=== PATIENT | female | born 1955 | race Caucasian/White ===

== ENCOUNTER → 2016-09-20 | Day surgery (SDC) | payer OTHER ==
[~2016-09-20] MED LIST: ERGO50000 PO; FLUT50SP EACH NARE; LACTATED RINGER'S 1000 ML INJ 1,000 ML ONE; PRAV20 PO; PROPOFOL 200 MG/20 ML AMP IV ONE; SYMB160A INH
--- NOTE | 2016-09-20 10:16 | GIPROC ---
[facility] [address] [facility], [id number] EGD WITH DILATION PROCEDURE REPORT EXAM DATE: 09/20/2016 PATIENT NAME: Zoe Delcid MR#: [id number] BIRTHDATE: 1955 ATTENDING: Leona Waddell MD ORDER #: [id number] FORM SETTER HELPER: Ronit Ramirez GRAPHICS SOFTWARE ENGINEER and Dalia Fay RN STATUS: outpatient INDICATIONS: The patient is a 61 yr old female here for an EGD with dilation due to reflux, dysphagia PROCEDURE PERFORMED: EGD w/ biopsy EGD w/ dilation of esophagus via guidewire MEDICATIONS: None and Per Anesthesia. TOPICAL ANESTHETIC: none CONSENT: The patient understands the risks and benefits of the procedure and understands that these risks include, but are not limited to: sedation, allergic reaction, infection, perforation and/or bleeding. Alternative means of evaluation and treatment include, among others: physical exam, x-rays, and/or surgical intervention. The patient elects to proceed with this endoscopic procedure. medical equipment was checked for proper function. Hand hygiene and appropriate measures for infection prevention was taken. After the risks, benefits and alternatives of the procedure were thoroughly explained, Informed consent was verified, confirmed and timeout was successfully executed by the treatment team. The patient was anesthetized with topical anesthesia and the EC-[id number] ([id number]) and EC-[id number] ([id number]) endoscope was introduced through the mouth and advanced to the second portion of the duodenum. The instrument was slowly withdrawn as the mucosa was fully examined. Gastritis antrum-biopsy esophagitis distal esophagus. Dilation was performed at gastroesophageal junction. DILATOR: SIZE(S): RESISTANCE: HEME: APPEARANCE: Dilator: Savary over guidewire Size(s): 16 COMMENT: Retroflexed views revealed s/p lapband ADVERSE EVENTS: There were no complications. IMPRESSIONS: 1. Gastritis antrum-biopsy esophagitis distal esophagus 2. Retroflexed views revealed s/p lapband RECOMMENDATIONS: 1. Anti-reflux regimen 2. Start PPI 3. Await biopsy results. Biopsy results will not be ready for 7-10 days. If you don't hear from us in two weeks, call our office for biopsy results. 4. Avoid NSAIDS 5. If still aaxgdrsab-wupi-mi will schedule ba swallow REPEAT EXAM: EGD pending biopsy results Leona Waddell MD eSigned: Leona Waddell MD 09/20/2016 10:16 AM cc: Lauren Shepherd [facility] Gabriela Evans M.D. PATIENT NAME: Zoe Delcid MR#: [id number]
== END | disposition home or self-care (01) ==
LOC: ESDC 08:09
PROVIDERS: ATTEND Internal Medicine Gastroenterology
DX: K21.9 Gastro-esophageal reflux disease without esophagitis (principal); R13.10 Dysphagia, unspecified; K29.70 Gastritis, unspecified, without bleeding; K20.9 Esophagitis, unspecified
CPT/HCPCS: 00740; 43239; 43248; 88305; J3010; J7120; 88312